=== PATIENT | male | born 1980 | race Caucasian/White ===

== ENCOUNTER 2022-12-28 06:13 | Emergency (ER) | payer BC ==
[~2022-12-28] VITALS: Ht 170.2 cm; Wt 122.5 kg
[2022-12-28 06:34] VITALS: BP_SYST 150; PULSE 85; RESP 21; TEMP 98; O2SAT 97
[2022-12-28] MEDS ORDERED: ACYC400T19 PO (06:54)
[2022-12-28] MEDS ORDERED: PRED50TA PO (06:54)
[2022-12-28] MEDS ORDERED: BENZ1LOZ73 PO (06:54)
[2022-12-28] MEDS ORDERED: TRAM50TA2 PO (07:33)
[2022-12-28 07:36] VITALS: O2SAT 97
[2022-12-28 07:38] VITALS: BP_SYST 143; PULSE 73; RESP 14; TEMP 97.8
== END 2022-12-28 07:38 | disposition home or self-care (01) ==
LOC: SED 06:13
DX: K12.1 Other forms of stomatitis (principal); R07.0 Pain in throat; Z79.899 Other long term (current) drug therapy
CPT/HCPCS: 87081; 99283

== ENCOUNTER 2023-10-02 04:59 | Emergency (ER) | payer BC ==
[~2023-10-02] VITALS: Ht 170.2 cm; Wt 117.9 kg
[~2023-10-02 04:59] MED LIST: ACYC400T19 PO; BENZ1LOZ73 PO; PRED50TA PO; TRAM50TA2 PO
[2023-10-02 05:18] VITALS: BP_SYST 157; PULSE 85; RESP 16; TEMP 97.1; O2SAT 99
[2023-10-02] MEDS: KETOROLAC TROMETHAMINE 30 MG VIAL IM ONE (06:06)
[2023-10-02] MEDS ORDERED: METH-800 PO (06:44)
[2023-10-02 06:50] VITALS: BP_SYST 157; PULSE 85; RESP 16; TEMP 97.1; O2SAT 99
== END 2023-10-02 06:50 | disposition home or self-care (01) ==
LOC: SED 04:59
DX: S16.1XXA Strain of muscle, fascia and tendon at neck level, initial encounter (principal); R03.0 Elevated blood-pressure reading, without diagnosis of hypertension; Z79.899 Other long term (current) drug therapy; Z79.2 Long term (current) use of antibiotics; X58.XXXA Exposure to other specified factors, initial encounter; Y93.89 Activity, other specified; Y92.89 Other specified places as the place of occurrence of the external cause; Y99.8 Other external cause status
CPT/HCPCS: 99285; 72125; 96372; J1885